=== PATIENT | male | born 1960 | race Caucasian/White ===

== ENCOUNTER 2017-12-21 14:20 | Emergency (ER) | payer SELFPAY ==
[2017-12-21] MEDS ORDERED: Benzocaine 20% Topical Spray UD MUCMEM ONE (14:37)
[2017-12-21] MEDS ORDERED: Lidocaine 2% Viscous Solution 15 ML Cup PO ONE (14:37)
--- NOTE | 2017-12-21 14:45 | EDM.PDOC ---
ED HPI GENERAL MEDICAL PROBLEM - General Chief Complaint: ENT Problem Stated Complaint: SWELLING ON LF SIDE OF FACE Time Seen by Provider: 12/21/17 14:40 Source of Information: Reports: Patient History Limitations: Reports: No Limitations - History of Present Illness INITIAL COMMENTS - FREE TEXT/NARRATIVE: HISTORY AND PHYSICAL: History of present illness: Patient is a 57-year-old male here with complaint of left-sided tooth pain and jaw swelling x 3 days. He states he believes he has a tooth abscess. He denies any fevers, chills, nausea, vomiting. He has not made an appointment to see a dentist. Review of systems: As per history of present illness and below otherwise all systems reviewed and negative. Past medical history: As per history of present illness and as reviewed below otherwise noncontributory. Surgical history: As per history of present illness and as reviewed below otherwise noncontributory. Social history: No reported history of drug or alcohol abuse. Family history: As per history of present illness and as reviewed below otherwise noncontributory. Physical exam: General: Patient sitting comfortably in no acute distress and nontoxic appearing. HEENT: Poor dentition throughout. The left lower 1st and 2nd molars are cracked and eroded to the gums. There is a small area of purulence and erythema to the adjacent gum. Atraumatic, normocephalic, pupils reactive, negative for conjunctival pallor or scleral icterus, mucous membranes moist, throat clear, neck supple, nontender, trachea midline. No meningeal signs. Lungs: Clear to auscultation, breath sounds equal bilaterally, chest nontender. Heart: S1S2, regular, negative for clicks, rubs, or overt murmur. Extremities: Atraumatic, negative for cords or calf pain. Neurovascular unremarkable. Neuro: Awake, alert, oriented. Cranial nerves II through XII unremarkable. Cerebellum unremarkable. Motor and sensory unremarkable throughout. Exam nonfocal. Notes: Diagnostics: None Therapeutics: Dental Balls Prescription Penicillin Impression: Dental infection, dentalgia Plan: 1. Take antibiotic as directed, may use dental balls as needed for pain along with motrin and tylenol. 2. Follow up with dentist 3. Return to ED as needed as discussed Definitive disposition and diagnosis as appropriate pending reevaluation and review of above. left jaw Pain Score (Numeric/FACES): 7 - Related Data Allergies Allergy/AdvReac Type Severity Reaction Status Date / Time No Known Allergies Allergy Verified 12/21/17 14:34 Home Meds: Home Meds Penicillin V Potassium [Veetids] 500 mg PO TID #30 tab 12/21/17 [Rx] Past Medical History - Infectious Disease History Infectious Disease History: Reports: None - Past Surgical History Musculoskeletal Surgical History: Reports: Other (See Below) Other Musculoskeletal Surgeries/Procedures:: Ankle surgery Social & Family History - Family History Family Medical History: Noncontributory - Tobacco Use Smoking Status *Q: Never Smoker - Recreational Drug Use Recreational Drug Use: No ED ROS ENT - Review of Systems Review Of Systems: ROS reveals no pertinent complaints other than HPI. ED EXAM, ENT - Physical Exam Exam: See Below (see dictation) Course - Vital Signs Last Recorded V/S: Last Vital Signs Temp 36.6 C 12/21/17 14:35 Pulse 76 12/21/17 14:35 Resp 20 12/21/17 14:35 BP 133/88 12/21/17 14:35 Pulse Ox 98 12/21/17 14:35 - Orders/Labs/Meds Meds: Medications Discontinued Medications Generic Name Dose Route Start Last Admin Trade Name Freq PRN Reason Stop Dose Admin Benzocaine 2 each 12/21/17 14:37 Hurricaine One 20% MUCMEM 12/21/17 14:38 ONETIME ONE Lidocaine HCl 15 ml 12/21/17 14:37 Xylocaine 2% Viscous PO 12/21/17 14:38 ONETIME ONE Departure - Departure Time of Disposition: 14:44 Disposition: Home, Self-Care 01 Condition: Good Clinical Impression: Dental infection - Discharge Information Prescriptions: Penicillin V Potassium [Veetids] 500 mg PO TID #30 tab Referrals: PCP,None [Primary Care Provider] - Additional Instructions: The following information is given to patients seen in the emergency department who are being discharged to home. This information is to outline your options for follow-up care. We provide all patients seen in our emergency department with a follow-up referral. The need for follow-up, as well as the timing and circumstances, are variable depending upon the specifics of your emergency department visit. If you don't have a primary care physician on staff, we will provide you with a referral. We always advise you to contact your personal physician following an emergency department visit to inform them of the circumstance of the visit and for follow-up with them and/or the need for any referrals to a consulting specialist. The emergency department will also refer you to a specialist when appropriate. This referral assures that you have the opportunity for follow-up care with a specialist. All of these measure are taken in an effort to provide you with optimal care, which includes your follow-up. Under all circumstances we always encourage you to contact your private physician who remains a resource for coordinating your care. When calling for follow-up care, please make the office aware that this follow-up is from your recent emergency room visit. If for any reason you are refused follow-up, please contact the [facility] Emergency Department at and asked to speak to the emergency department charge nurse. [facility] [address] [place] [id number] 1. Take antibiotic as directed, may use dental balls as needed for pain along with motrin and tylenol. 2. Follow up with dentist 3. Return to ED as needed as discussed
== END 2017-12-21 14:59 | disposition home or self-care (01) ==
LOC: MW.ED 14:20
DX: K04.7 Periapical abscess without sinus (principal)
CPT/HCPCS: 99282; A9270